=== PATIENT | female | born 1955 | race Caucasian/White ===

== ENCOUNTER 2018-11-08 14:10 | Outpatient (CLI) | payer MEDICARE, MEDICAID ==
[~2018-11-08 14:10] MED LIST: AMIT-189 PO; CLON-527 PO; ESTR0.6261 PO; FENT1PAT13 TD; FERR-86 PO; HYDR-4353 PO
== END 2018-11-08 23:59 | disposition home or self-care (01) ==
LOC: RAD 14:10
PROVIDERS: ATTEND Physician Assistant
DX: R13.11 Dysphagia, oral phase (principal); R47.1 Dysarthria and anarthria; K21.9 Gastro-esophageal reflux disease without esophagitis; J44.9 Chronic obstructive pulmonary disease, unspecified
CPT/HCPCS: 74230

== ENCOUNTER 2022-11-25 12:17 | Emergency (ER) | payer MEDICARE, MEDICAID ==
[~2022-11-25] VITALS: Ht 167.6 cm; Wt 60.5 kg
[~2022-11-25 12:17] MED LIST changes: -AMIT-189 PO; +AMIT-286 PO
[2022-11-25 12:51] VITALS: BP 121/76
[2022-11-25] MEDS ORDERED: HYDROcodone/acetaminophen 5mg/325mg tablet PO ONE (14:50)
[2022-11-25] MEDS ORDERED: HYDR-3965 PO (14:54)
== END 2022-11-25 15:07 | disposition home or self-care (01) ==
LOC: ER 12:18
DX: M79.644 Pain in right finger(s) (principal); M25.531 Pain in right wrist; F41.9 Anxiety disorder, unspecified; E07.9 Disorder of thyroid, unspecified; F12.10 Cannabis abuse, uncomplicated; Z88.1 Allergy status to other antibiotic agents; Z88.5 Allergy status to narcotic agent; Z79.899 Other long term (current) drug therapy; Z79.1 Long term (current) use of non-steroidal anti-inflammatories (NSAID); W19.XXXA Unspecified fall, initial encounter; Y93.89 Activity, other specified; Y92.89 Other specified places as the place of occurrence of the external cause; Y99.8 Other external cause status
CPT/HCPCS: 73130; 99283